=== PATIENT | male | born 1960 | race Caucasian/White ===

== ENCOUNTER 2023-03-27 17:50 | Emergency (ER) | payer OTHER ==
--- OUTSIDE RECORDS SUMMARY | 2023-03-27 17:53 | XMS REPORT | Continuity of Care Document ---
:1960 Author Organization [facility] t Address [address] [place] [address] [place] [id number] Care Team Providers Name Role Phone Wellness PT, Pt Primary Care Physician EMILY NIELSEN Attending Clinician Unavailable CINDY ARTHUR Attending Clinician Unavailable SARAH DELUNA Attending Clinician Unavailable Judith Dixon Attending Clinician Melissa Gregory MD Attending Clinician JUSTIN WEEMS Attending Clinician Unavailable Emily Nielsen MD Attending Clinician JUVENAL GOLDSTEIN Attending Clinician Unavailable Lab, Adc Fam Pob I Attending Clinician Unavailable Ze Rao Attending Clinician EZ NEWTON Attending Clinician Unavailable EMILY NIELSEN Admitting Clinician Unavailable Payers Payer Name Policy Type Policy Number Effective Date Expiration Date Jonathan mora CIGNA OPEN [id number] 2019 ACCESS/OPEN ACCESS 00:00:00 PLUS OPEN ACCESS PLUS - [id number] [employer] EVOLUTIONS [id number] HEALTHCARE -GENERIC Problems Condition Condition Condition Status Onset Resolution Last Treating Co mments Source Name Details Category Date Date Treatment Clinician Date History of History of Disease Active B aylor syncope syncope 07-14 [place] 00:00: of 00 Medicin e History of History of Disease Active [facility] bilateral bilateral 07-08 [facility] th knee knee 00:00: replacemen replacemen 00 t t Primary Primary Disease Active [facility] osteoarthr osteoarthr 07-08 He alth itis of itis of 00:00: right knee right knee 00 Chronic Chronic Disease Active [facility] pain of pain of 8-06 [facility] left knee left knee 00:00: 00 Chronic Chronic Disease Active [facility] pain of pain of 8-06 [facility] left knee left knee 00:00: 00 Arthritis Arthritis Disease Active [facility] of both of both 2-10 Health knees knees 00:00: 00 Trigger Trigger Problem Active 2016-10-04 Me moria finger finger 05:12:01 l (acquired) (acquired) He rmann Active Problem 10/04/2016 [facility] Trigger Trigger Diagnosis Active 2016-10-04 [facility] finger, finger, 05:12:01 l left ring left ring Herm hood finger finger Active Diagnosis 10/04/2016 [facility] Allergies, Adverse Reactions, Alerts Allergy Allergy Status Severity Reaction(s) Onset Inactive Treating Comm ents Source Name Type Date Date Clinician Oxycodon Allergy Active Other [facility] to 07-08 [facility] 00:[facility]: e 00 N.K.D.A. N.K.D.A. Active Info Not 2014-10 Ronak sj Available 1-16 l 00:00: Zoran 00 NO KNOWN Drug Active [facility] ALLERGIE Class ity of [facility] Social History Social Habit Start Date Stop Date Quantity Comments Source History SDOH Alcohol [facility] Frequency of Medicine History SDOH Alcohol [facility] [place] St[facility] Drinks of Medicine History SDOH Alcohol [facility] [place] Binge of Medicine Exposure to SARS-CoV-2 Not sure [facility] (event) Alcohol intake 2022-07-13 2022-07-13 Current drinker [facility] 00:00:00 00:00:00 of alcohol of Medicine (finding) Alcohol Comment 2022-07-13 2022-07-13 social [facility] 00:00:00 00:00:00 of Medicine Tobacco use and 2022-07-13 2022-07-13 Smokeless [facility] exposure 00:00:00 00:00:00 tobacco non-user of Medic ine History SDOH Physical 2022-07-07 2022-07-07 3 [facility] Activity DPW 00:00:00 00:00:00 of Medicine History SDOH Physical 2022-07-07 2022-07-07 3 [facility] Activity MPS 00:00:00 00:00:00 of Medicine illicitdruguse 2015-08-31 2015-08-31 [facility] 00:00:00 00:00:00 Zoran Sex [birth year] At [birth year] [facility] 00:00:00 00:00:00 Smoking Status Start Date Stop Date Source Tobacco smoking consumption unknown [facility] Never smoked tobacco [facility] [place] [facility] of Medicine Medications Ordered Filled Start Stop Current Ordering Indication Dosage Frequency Signature Comments Components Source Medication Medication Date Date Medication? Clinician (SIG) Name Name rosuvastati Yes 20mg Take 20 mg Zeb n (CRESTOR) 06-23 by mouth [place] [facility] 20 MG 00:00: daily. of tablet 00 Medicin e simvastatin 0 Yes [facility] (Zocor) 20 06-24 [facility] MG tablet 00:00: 00 simvastatin 2020-0 Yes [facility] (Zocor) 20 9- [facility] MG tablet 00:00: 00 simvastatin 2020-0 Yes [facility] (Zocor) 20 9- Health MG tablet 00:00: 00 simvastatin 2020-0 Yes [facility] (Zocor) 20 9- Health MG tablet 00:00: 00 simvastatin 2020-0 Yes [facility] (Zocor) 20 9 [facility] MG tablet 00:00: 00 simvastatin 2020-0 Yes [facility] (Zocor) 20 9- Health MG tablet 00:00: 00 simvastatin 2020-0 Yes [facility] (Zocor) 20 9- Health MG tablet 00:00: 00 simvastatin 2020-0 Yes [facility] (Zocor) 20 9- Health MG tablet 00:00: 00 simvastatin 2020-0 Yes Zeb (ZOCOR) 20 9- College MG tablet 00:00: of 00 Medicin e simvastatin 2020-0 Yes Zeb (ZOCOR) 20 9- College MG tablet 00:00: of 00 Medicin e simvastatin 2020-0 No [place] (ZOCOR) 20 06-24 College MG tablet 00:00: 00:00 of 00 :00 Medicin e Lipitor 2015-10 Yes Ivelisse 1 tablet [facility] 2-20 [place] 05:12: Lipitor 2015-10 Yes Ivelisse 1 tablet Mem oria 2-20 [place] 05:12: Immunizations Ordered Immunization Filled Immunization Date Status Commen ts Source Name Name Covid-19 Pfizer 2021-01-13 Completed [facility] SARS-CoV-2 Vaccination 00:00:00 Covid-19 Pfizer 2021-01-13 Completed [facility] SARS-CoV-2 Vaccination 00:00:00 Covid-19 Pfizer 2021-01-13 Completed [facility] SARS-CoV-2 Vaccination 00:00:00 Covid-19 Pfizer 2021-01-13 Completed [facility] SARS-CoV-2 Vaccination 00:00:00 Covid-19 Pfizer 2021-01-13 Completed [facility] SARS-CoV-2 Vaccination 00:00:00 Covid-19 Pfizer 2021-01-13 Completed [facility] SARS-CoV-2 Vaccination 00:00:00 Covid-19 Pfizer 2021-01-13 Completed [facility] SARS-CoV-2 Vaccination 00:00:00 Covid-19 Pfizer 2021-01-13 Completed [facility] SARS-CoV-2 Vaccination 00:00:00 Covid-19 Pfizer 2020-12-24 Completed [facility] SARS-CoV-2 Vaccination 00:00:00 Covid-19 Pfizer 2020-12-24 Completed [facility] SARS-CoV-2 Vaccination 00:00:00 Covid-19 Pfizer 2020-12-24 Completed [facility] SARS-CoV-2 Vaccination 00:00:00 Covid-19 Pfizer 2020-12-24 Completed [facility] SARS-CoV-2 Vaccination 00:00:00 Covid-19 Pfizer 2020-12-24 Completed [facility] SARS-CoV-2 Vaccination 00:00:00 Covid-19 Pfizer 2020-12-24 Completed [facility] SARS-CoV-2 Vaccination 00:00:00 Covid-19 Pfizer 2020-12-24 Completed [facility] SARS-CoV-2 Vaccination 00:00:00 Covid-19 Pfizer 2020-12-24 Completed [facility] SARS-CoV-2 Vaccination 00:00:00 Vital Signs Vital Name Observation Time Observation Value Comments Source Systolic blood 2022-07-13 14:03:00 132 mm[Hg] [facility] Medicine Diastolic blood 2022-07-13 14:03:00 86 mm[Hg] [facility] Medicine Heart rate 2022-07-13 14:00:00 56 /min [facility] Body height 2022-07-13 14:00:00 [facility]9 [facility] Body weight 2022-07-13 14:00:00 97.523 kg [facility] of Medicine BMI 2022-07-13 14:00:00 29.16 kg/m2 [facility] Systolic blood 2021-07-13 16:51:00 162 mm[Hg] [facility] Medicine Diastolic blood 2021-07-13 16:51:00 95 mm[Hg] [facility] Heart rate 2021-07-13 16:51:00 60 /min [facility] Body temperature 2021-07-13 16:51:00 36.5 [facility] Body height 2021-07-13 16:51:00 182.9 cm [facility] Body weight 2021-07-13 16:51:00 95.255 kg [facility] BMI 2021-07-13 16:51:00 28.48 kg/m2 [facility] Systolic (mm Hg) 2015-08-31 19:15:00 Ronakcheikh shaffer [facility] Height 2015-08-31 19:15:00 [facility] Weight 2015-08-31 19:15:00 [facility] Temperature Oral (F) 2015-08-31 19:15:00 97.5 F [facility] Heart Rate 2015-08-31 19:15:00 [facility] Diastolic (mm Hg) 2015-08-31 19:15:00 [facility] [place] Heart Rate 2015-07-27 16:00:00 [facility] Diastolic (mm Hg) 2015-07-27 16:00:00 Mem orial [facility] Systolic (mm Hg) 2015-07-27 16:00:00 Ronak deena [facility] Height 2015-07-27 16:00:00 [facility] Weight 2015-07-27 16:00:00 [facility] (F) 2015-07-27 16:00:00 97.6 F [facility] Procedures Procedure Date / Time Performing Clinician Source Performed (SCN) CT CHEST/CARDIAC 2022-07-13 09:51:59 [facility] ELECTROCARDIOGRAM COMPLETE 2022-07-13 09:04:00 B [facility] TREADMILL, NO IMAGING 2022-07-13 00:00:00 [facility] NM BONE SCAN 3 PHASE [id number] 2021-07-27 15:00:00 [facility] NM BONE SCAN 3 PHASE [id number] 2021-07-27 15:00:00 Dez [facility] [place] ARTHROCENTESIS ASPIR&/INJ 2021-07-08 20:15[facility]BURSA W/US [place] ARTHROCENTESIS ASPIR&/INJ 2021-07-08 20:15:24 Gia [facility] MAJOR JT/BURSA W/US XR KNEE 3 VIEWS BILATERAL 2021-07-08 17:19:48 Gia [facility] Plan of Care Planned Activity Planned Date Details Comments Source Future Scheduled 2022-07-14 TETANUS SHOT (ADULT) [facility] Test 17:01:34 [code = TETANUS SHOT Medicin e (ADULT)] Future Scheduled 2022-07-14 BMI FOLLOW UP PLAN [code [facility] Test 17:01:34 = BMI FOLLOW UP PLAN] Medici ne Future Scheduled 2022-07-14 Hepatitis C screening [facility] Test 17:01:34 (procedure) [code = Medicine 248612079] Future Scheduled 2022-07-14 Human immunodeficiency B [facility] 17:01:34 virus screening Medicine (procedure) [code = 690607406] Future Scheduled 2022-07-14 ZOSTER VACCINE (1 of 2) [facility] Test 17:01:34 [code = ZOSTER VACCINE (1 Me dicine of 2)] Future Scheduled 2022-07-14 COVID-19 Vaccine (4 - Ba [facility] Test 17:01:34 Booster) [code = COVID-19 Me dicine Vaccine (4 - Booster)] Future Scheduled 2022-07-14 FLU VACCINE > 6 MONTHS B [facility] of Test 17:01:34 [code = FLU VACCINE > 6 Medi cine MONTHS] Future Scheduled 2022-07-14 Screening for malignant [facility] of Test 17:01:34 neoplasm of colon Medicine (procedure) [code = 944990438] Future Scheduled 2022-07-13 ELECTROCARDIOGRAM [facility] of Test 09:02:55 COMPLETE [code = 48148] Medi cine Future Scheduled 2021-07-18 Screening for malignant [facility] of Test 00:20:56 neoplasm of colon Medicine (procedure) [code = 647703504] Future Scheduled 2021-07-18 TETANUS SHOT (ADULT) [facility] of Test 00:20:56 [code = TETANUS SHOT Medicin e (ADULT)] Future Scheduled 2021-07-18 BMI FOLLOW UP PLAN [code [facility] of Test 00:20:56 = BMI FOLLOW UP PLAN] Medici ne Future Scheduled 2021-07-18 Hepatitis C screening [facility] of Test 00:20:56 (procedure) [code = Medicine 340611948] Future Scheduled 2021-07-18 Human immunodeficiency B [facility] of Test 00:20:56 virus screening Medicine (procedure) [code = 868840075] Future Scheduled 2021-07-18 ZOSTER VACCINE (1 of 2) [facility] of Test 00:20:56 [code = ZOSTER VACCINE (1 Me dicine of 2)] Future Scheduled 2021-07-18 FLU VACCINE > 6 MONTHS B [facility] of Test 00:20:56 [code = FLU VACCINE > 6 Medi cine MONTHS] Future Scheduled 2021-07-18 Screening for malignant [facility] of Test 00:20:56 neoplasm of colon Medicine (procedure) [code = 526745510] Future Scheduled 2021-07-18 TETANUS SHOT (ADULT) [facility] of Test 00:20:56 [code = TETANUS SHOT Medicin e (ADULT)] Future Scheduled 2021-07-18 BMI FOLLOW UP PLAN [code [facility] of Test 00:20:56 = BMI FOLLOW UP PLAN] Medici ne Future Scheduled 2021-07-18 Hepatitis C screening [facility] of Test 00:20:56 (procedure) [code = Medicine 733672728] Future Scheduled 2021-07-18 Human immunodeficiency B [facility] of Test 00:20:56 virus screening Medicine (procedure) [code = 319353773] Future Scheduled 2021-07-18 ZOSTER VACCINE (1 of 2) [facility] 00:20:56 [code = ZOSTER VACCINE (1 Me dicine of 2)] Future Scheduled 2021-07-18 FLU VACCINE > 6 MONTHS B [facility] Test 00:20:56 [code = FLU VACCINE > 6 Medi cine MONTHS] Future Scheduled INFLUENZA VACCINE [code = [facility] Hospital Future Scheduled COVID-19 VACCINE (1) [facility] [code = COVID-19 VACCINE Hos pital (1)] Future Scheduled COLONOSCOPY SCREENING [facility] Test [code = COLONOSCOPY Hospital SCREENING] Future Scheduled SHINGLES VACCINES (#2) [facility]ist Test [code = SHINGLES VACCINES Ho spital (#2)] Encounters Start End Encounter Admission Attending Care Care Encounter Source Date/Time Date/Time Type Type Clinicians Facility Department ID 2021-09-22 Outpatient [facility] [id number] [facility] 10:31:43 Health 2021-07-08 Outpatient [facility] [id number] CT 11:57:34 Health 2021-07-08 Outpatient [facility] [id number] CT 11:51:44 [facility] 2020-03-30 Outpatient GIA, O[facility] [id number] 13:38:26 [facility] 2022-07-13 2022-07-13 Outpatient JOSIE ARTHUR [facility] [id number] [facility] 09:51:59 14:26:12 CINDY bryant of Medicin e 2022-07-13 2022-07-13 Office JOSIE ARTHUR [id number] [facility] 08:48:01 11:18:38 Visit CINDY AMBULATOR [id number] College Y [id number] [id number] Medi regi 300 e 2022-06-21 2022-06-21 Outpatient ROOPAPILO [facility] [id number] [place] 00:00:00 00:00:00 SARAH [address] 2022-06-21 2022-06-21 Outpatient [facility] [id number] [place] 00:00:00 00:00:00 SARAH [address] 2021-08-192021-08-19 Telephone ROSELINE Garces [facility] [id number] [place] 00:00:00 00:00:00 Judith ORTHO AND [id number] Health SPINE 9.2.7.2.686 MEDICAL [id number] PLA[address] 2 2021-07-27 2021-07-27 EXT MHH OP EXT MSRDP [id number] [place] 00:00:00 00:00:00 LOCATION [id number] H ealth 9.2.7.2.686 [id number] 2021-07-27 2021-07-27 EXT MHH OP EXT MSRDP [id number] [place] 00:00:00 00:00:00 LOCATION [id number] H ealth 9.2.7.2.686 [id number] 2021-07-21 2021-07-21 Orders Dez ROSELINE [facility] [id number] [place] 00:00:00 00:00:00 Only Judith ORTHO AND 350.1.13.58 Health SPINE 9.2.7.2.686 MEDICAL [id number] LEOLA 2 2021-07-13 2021-07-13 Office JOSIE Gregory [id number] [facility] 11:44:04 12:29:45 Visit Melissa AMBULATOR 350.1.13.21 [facility] Y 0.2.7.2.686 [id number] Medi regi 800 e 2021-07-13 2021-07-13 Outpatient JOSIE WEEMS [facility] [id number] [facility] 10:20:29 12:10:56 JUSTIN patterson of Medicin e 2021-07-08 2021-07-08 Office ROSELINE Nielsen 6400 [id number] [place] 11:38:00 13:09:[address] 350.1.13.58 Health 9.2.7.2.686 [id number] 2021-07-08 2021-07-08 EXT MHH OP Nielsen, EXT MSRDP [id number] [place] 00:00:00 00:00:00 Kelly [facility].13.58 [facility] 9.2.7.2.686 [id number] 2021-07-08 2021-07-08 EXT H OP Gia, EXT MSRDP [id number] [place] 00:00:00 00:00:00 Kelly LOCATION 350.1.13.58 H ealt 9.2.7.2.686 [id number] 2021-06-25 2021-06-25 Outpatient ANGELITA [facility] [id number] [facility] 09:49:50 09:49:50 JUVENAL bryant of Medicin e 2021-06-25 2021-06-25 Outpatient ANGELITA [facility] [id number] [facility] 09:42:48 09:42:48 JUVENAL bryant of Medicin e 2020-09-30 2020-09-30 Laboratory Lab, Adc Fam Pob I [facility] [id number]. [id number] [facility] 16:36:10 16:56:10 Only Ze Newton [facility] 350.1.13.10 Tara 4.2.7.2.686 Aj as Professio [id number] Mn dical [address] Office Building One 2020-09-30 2020-09-30 Outpatient R ZANDER [facility] [id number] [facility] 16:40:00 16:40:00 ZE albrecht [facility] 2019-12-09 2019-12-10 Inpatient NIELSEN, MHOSH MHOSH [id number] 12:10:00 12:34:00 EMILY [facility] 2015-08-31 2015-08-31 Unknown nullFlavo [facility] [id number] 24-2 [facility]oria 19:15:00 19:15:00 r and General [id number] l Surgery [id number] Najma nn [id number] 2015-08-31 2015-08-31 Unknown nullFlavo [facility] [id number] 24-2 [facility] 19:15:00 19:15:00 r and General [id number] l Surgery [id number] [facility] nn [id number] 2015-08-31 2015-08-31 Outpatient Davina Hand Davina Hand [id number] [facility]inic 13:15:00 13:15:00 and and General al Works General Surgery Surgery 2015-07-27 2015-07-27 Unknown nullFlavo [facility] Hand [id number] 52-c [facility] 17:00:00 17:00:00 r and General [id number] l Surgery [id number] [facility] [id number] 2015-07-27 2015-07-27 Unknown nullFlavo [facility] Hand [id number] 52-c [facility] 17:00:00 17:00:00 r and General [id number] l Surgery [id number] [facility] [id number] 2015-07-27 2015-07-27 Unknown nullFlavo [facility] [id number] ea-9 [facility] 16:00:00 16:00:00 r and General [id number] l Surgery [id number] [facility] [id number] 2015-07-27 2015-07-27 Unknown nullFlavo [facility] [id number] ea-9 [facility] 16:00:00 16:00:00 r and General [id number] l Surgery [id number] [facility] [id number] 2015-07-27 2015-07-27 Outpatient Davina Hand Davina Hand [id number] eClinic 11:00:00 11:00:00 and and General al Works General Surgery Surgery Results This patient has no known results.
[2023-03-27] MEDS ORDERED: NA CHLORIDE 0.9% 500 ML ONE (18:46)
[2023-03-27] MEDS ORDERED: MORPHINE 4 MG/ML SYR ONE (18:46)
[2023-03-27] MEDS ORDERED: ONDANSETRON 4 MG/2 ML VIAL ONE (18:46)
[2023-03-27 18:50] LABS: Absolute Lymphocytes (CBC) 1.9 K/uL (0.7-4.9); Hematocrit 40.8 % (39.6-49.0); Lymphocytes % 22.8 % (15.3-44.8); RBC Red Blood Cell Count 4.53 M/uL (4.33-5.43)
[2023-03-27 19:10] LABS: Potassium 3.9 mEq/L (3.5-5.1)
--- NOTE | 2023-03-27 19:43 | RAD REPORT ---
EXAM DESCRIPTION: CT - Stone Protocol - 03/27/2023 7:24 pm CLINICAL HISTORY: Abdominal pain. COMPARISON: None. TECHNIQUE: Computed axial tomography of the abdomen pelvis was obtained without oral or IV contrast. Lack of IV and oral contrast limits evaluation of solid organs, appendix, bowel, and vessels. Kilpatrick l reformatted images were obtained and reviewed. All CT scans are performed using dose optimization technique as appropriate and may include automated exposure control or mA/KV adjustment according to patient size. FINDINGS: Tiny left renal calculi. No hydronephrosis. Small left renal cyst Small right renal cyst Ureteral calculus is not seen. No bladder calculus. The liver, spleen, pancreas and adrenals appear grossly normal There is no evidence of diverticulitis. The appendix appears normal Spondylosis lumbar spine IMPRESSION: Tiny nonobstructing left renal calculi
--- NOTE | 2023-03-27 20:11 | ER ---
Nurse's Notes [facility] Name: David Melendrez Age: 63 yrs Sex: Male : 1960 Arrival Date: 03/27/2023 Time: 17:50 Bed 10 Private MD: Diagnosis: Small left renal calculi that is nonobstructing Presentation: 03/27 18:12 Chief complaint: Patient states: Left flank pain since 1400. Coronavirus screen: At [facility] this time, the client does not indicate any symptoms associated with coronavirus-19. Ebola Screen: No symptoms or risks identified at this time. Initial Sepsis Screen: Does the patient meet any 2 criteria? No. Patient's initial sepsis screen is negative. Does the patient have a suspected source of infection? No. Patient's initial sepsis screen is negative. Risk Assessment: Do you want to hurt yourself or someone else? Patient reports no desire to harm self or others. Onset of symptoms was March 27, 2023 at 14:00. 18:12 Method Of Arrival: Ambulatory [facility] 18:12 Acuity: JOEY 3 jl7 Triage Assessment: 18:14 General: Appears in no apparent distress. uncomfortable, Behavior is calm, cooperative, jl7 appropriate for age. Pain: Complains of pain in left flank Pain currently is 7 out of 10 on a pain scale. GI: Reports Pain is 7 out of 10 on a pain scale. Historical: - Allergies: 18:14 No Known Allergies; jl7 - Home Meds: 18:14 Simvastatin Oral [Active]; jl7 - PMHx: 18:14 Hypertensive disorder; Hypercholesterolemia; 7 - Immunization history:: Adult Immunizations unknown. - Social history:: Smoking status: Patient denies any tobacco usage or history of. Screenin:40 [facility] ED Fall Risk Assessment (Adult) Score/Fall Risk Level 0 - 2 = Low Risk. Abuse ss screen: Denies threats or abuse. Denies injuries from another. Nutritional screening: No deficits noted. Tuberculosis screening: No symptoms or risk factors identified. Assessment: 18:40 General: Appears in no apparent distress. uncomfortable, Behavior is calm, cooperative, ss appropriate for age. Pain: Complains of pain in left flank. Neuro: Level of Consciousness is awake, alert, obeys commands, Oriented to person, place, time, situation. Cardiovascular: Capillary refill < 3 seconds Patient's skin is warm and dry. Respiratory: Airway is patent Respiratory effort is even, unlabored, Respiratory pattern is regular, symmetrical. GI: Abdomen is round non-distended, Bowel sounds present X 4 quads. Abd is soft X 4 quads Abdomen is tender to palpation in left upper quadrant and left lower quadrant. : Urine is blood tinged. Derm: Skin is pink, warm \T\ dry. Musculoskeletal: No signs and/or symptoms reported regarding the musculoskeletal system. 19:30 Reassessment: Patient appears in no apparent distress at this time. Patient and/or eh3 family updated on plan of care and expected duration. Pain level reassessed. Patient is alert, oriented x 3, equal unlabored respirations, skin warm/dry/pink. Vital Signs: 18:12 BP 173 / 119; Pulse 60; Resp 17; Pulse Ox 97% ; Weight 95.25 kg; Height 6 ft. 0 in. ; jl7 Pain 7/10; 19:00 BP 171 / 98; Pulse 62; Resp 16; Pulse Ox 98% on R/A; eh3 20:00 BP 163 / 97; Pulse 61; Resp 16; Pulse Ox 97% on R/A; eh3 18:12 Body Mass Index 28.48 (95.25 kg, 182.88 cm) jl7 18:12 Pain Scale: Adult jl7 ED Course: 17:52 Patient arrived in ED. rg4 18:06 Scooter Mccarty MD is Attending Physician. kdr 18:14 Triage completed. jl7 18:14 Arm band placed on right wrist. jl7 18:35 Rosalie Russell, RN is Primary Nurse. ss 18:40 Patient has correct armband on for positive identification. Bed in low position. Call ss light in reach. Side rails up X2. Adult w/ patient. Pulse ox on. NIBP on. 18:52 Inserted saline lock: 20 gauge in right antecubital area, using aseptic technique. rs5 Blood collected. 19:26 CT Stone Protocol In Process Unspecified. EDMS 20:34 No provider procedures requiring assistance completed. IV discontinued, intact, eh3 bleeding controlled, No redness/swelling at site. Pressure dressing applied. Administered Medications: 18:40 Drug: Ondansetron IVP 4 mg Route: IVP; Site: right antecubital; ss 19:40 Follow up: Response: No adverse reaction eh3 18:40 Drug: NS 0.9% IV 500 ml Route: IV; Rate: bolus; Site: right antecubital; ss 19:30 Follow up: IV Status: Completed infusion; IV Intake: 500ml eh3 18:42 Drug: morphine IVP or IV 4 mg Route: IVP; Infused Over: 4 mins; Site: right antecubital;ss 19:40 Follow up: Response: No adverse reaction eh3 20:22 Drug: Hydrocodone-Acetaminophen PO (7.5 mg-325 mg) 1 tabs Route: PO; eh3 20:29 Follow up: Response: Medication administered at discharge. eh3 Medication: 20:34 VIS not applicable for this client. eh3 Intake: 19:30 IV: 500ml; Total: 500ml. eh3 Outcome: 20:10 Discharge ordered by . kdr 20:34 Discharged to home ambulatory. eh3 20:34 Condition: stable 20:34 Discharge instructions given to patient, Instructed on discharge instructions, follow up and referral plans. medication usage, Demonstrated understanding of instructions, follow-up care, medications, Prescriptions given X 4. 20:34 Patient left the ED. eh3 Signatures: Dispatcher [employer] EDMS Scooter Mccarty MD MD kdr Rosalie Russell RN RN Misty Perrin rg4 Aramis Eaton RN RN jl7 Pattie Beltre RN RN eh3 Fausto Beckman rs5
--- NOTE | 2023-03-27 20:11 | EDPHYS ---
Physician Documentation [facility] Name: David Melendrez Age: 63 yrs Sex: Male : 1960 Arrival Date: 03/27/2023 Time: 17:50 Bed 10 Private MD: ED Physician Scooter Mccarty HPI: 03/27 19:40 This 63 yrs old Male presents to ER via Ambulatory with complaints of Possible Kidney kdr Stone. 19:40 Patient complains of left flank pain, left CVA that began about 2:30 PM this afternoon. kdr Patient had kidney stones about 4 years ago. He states that to the best of his recollection the pain he now has is similar to that. Patient has had some nausea no vomiting has been more diaphoretic but otherwise has been stable. Patient is otherwise without associated signs and symptoms. He denies any pain with urination or diarrhea. Onset: The symptoms/episode began/occurred suddenly, at 14:30. Severity of symptoms: At their worst the symptoms were moderate severe just prior to arrival, in the emergency department the symptoms are unchanged. The patient has experienced a previous episode, approximately 40 years ago. The patient has not recently seen a physician. Historical: - Allergies: 18:14 No Known Allergies; jl7 - Home Meds: 18:14 Simvastatin Oral [Active]; jl7 - PMHx: 18:14 Hypertensive disorder; Hypercholesterolemia; jl7 - Immunization history:: Adult Immunizations unknown. - Social history:: Smoking status: Patient denies any tobacco usage or history of. ROS: 19:40 Constitutional: Negative for fever, chills, and weight loss, Eyes: Negative for injury, kdr pain, redness, and discharge, ENT: Negative for injury, pain, and discharge, Neck: Negative for injury, pain, and swelling, Cardiovascular: Negative for chest pain, palpitations, and edema, Respiratory: Negative for shortness of breath, cough, wheezing, and pleuritic chest pain, Abdomen/GI: Negative for abdominal pain, nausea, vomiting, diarrhea, and constipation, : Negative for injury, bleeding, discharge, and swelling, MS/Extremity: Negative for injury and deformity, Skin: Negative for injury, rash, and discoloration, Neuro: Negative for headache, weakness, numbness, tingling, and seizure activity. Psych: Negative for depression, anxiety, suicide ideation, homicidal ideation, and hallucinations, Allergy/Immunology: Negative for hives, rash, and allergies, Endocrine: Negative for neck swelling, polydipsia, polyuria, polyphagia, and marked weight changes, Hematologic/Lymphatic: Negative for swollen nodes, abnormal bleeding, and unusual bruising. 19:40 Back: Positive for pain at rest, of the left mid back. Exam: 19:40 Constitutional: This is a well developed, well nourished patient who is awake, alert, kdr and in no acute distress. Head/Face: Normocephalic, atraumatic. Eyes: Pupils equal round and reactive to light, extra-ocular motions intact. Lids and lashes normal. Conjunctiva and sclera are non-icteric and not injected. Cornea within normal limits. Periorbital areas with no swelling, redness, or edema. Neck: Trachea midline, no thyromegaly or masses palpated, and no cervical lymphadenopathy. Supple, full range of motion without nuchal rigidity, or vertebral point tenderness. No Meningismus. Chest/axilla: Normal chest wall appearance and motion. Nontender with no deformity. No lesions are appreciated. Cardiovascular: Regular rate and rhythm with a normal S1 and S2. No gallops, murmurs, or rubs. Normal PMI, no JVD. No pulse deficits. Respiratory: Lungs have equal breath sounds bilaterally, clear to auscultation and percussion. No rales, rhonchi or wheezes noted. No increased work of breathing, no retractions or nasal flaring. Abdomen/GI: Soft, non-tender, with normal bowel sounds. No distension or tympany. No guarding or rebound. No evidence of tenderness throughout. Back: No spinal tenderness. No costovertebral tenderness. Full range of motion. Skin: Warm, dry with normal turgor. Normal color with no rashes, no lesions, and no evidence of cellulitis. MS/ Extremity: Pulses equal, no cyanosis. Neurovascular intact. Full, normal range of motion. Neuro: Awake and alert, GCS 15, oriented to person, place, time, and situation. Cranial nerves II-XII grossly intact. Motor strength 5/5 in all extremities. Sensory grossly intact. Cerebellar exam normal. Normal gait. Psych: Awake, alert, with orientation to person, place and time. Behavior, mood, and affect are within normal limits. 19:40 Back: pain, that is mild, that is moderate, of the left mid back. Vital Signs: 18:12 BP 173 / 119; Pulse 60; Resp 17; Pulse Ox 97% ; Weight 95.25 kg; Height 6 ft. 0 in. ; jl7 Pain 04/24; 19:00 BP 171 / 98; Pulse 62; Resp 16; Pulse Ox 98% on R/A; eh3 20:00 BP 163 / 97; Pulse 61; Resp 16; Pulse Ox 97% on R/A; eh3 18:12 Body Mass Index 28.48 (95.25 kg, 182.88 cm) jl7 18:12 Pain Scale: Adult jl7 MDM: 19:40 Data reviewed: vital signs, nurses notes, lab test result(s), radiologic studies. kdr 20:10 Patient medically screened. kdr 03/27 18:24 Order name: CBC with Diff; Complete Time: 19:29 kdr 03/27 18:24 Order name: Chem 7; Complete Time: 19:29 kdr 03/27 18:24 Order name: CT Stone Protocol; Complete Time: 20:09 kdr Administered Medications: 18:40 Drug: Ondansetron IVP 4 mg Route: IVP; Site: right antecubital; ss 19:40 Follow up: Response: No adverse reaction 3 18:40 Drug: NS 0.9% IV 500 ml Route: IV; Rate: bolus; Site: right antecubital; ss 19:30 Follow up: IV Status: Completed infusion; IV Intake: 500ml 3 18:42 Drug: morphine IVP or IV 4 mg Route: IVP; Infused Over: 4 mins; Site: right antecubital;ss 19:40 Follow up: Response: No adverse reaction 3 20:22 Drug: Hydrocodone-Acetaminophen PO (7.5 mg-325 mg) 1 tabs Route: PO; 3 20:29 Follow up: Response: Medication administered at discharge. 3 Disposition Summary: 03/27/23 20:10 Discharge Ordered Location: Home kdr Problem: new kdr Symptoms: have improved kdr Condition: Stable kdr Diagnosis - Small left renal calculi that is nonobstructing kdr Followup: kdr - With: Private Physician - When: 2 - 3 days - Reason: If symptoms return, Further diagnostic work-up, Recheck today's complaints, Continuance of care, Re-evaluation by your physician Discharge Instructions: - Discharge Summary Sheet kdr - Kidney Stones, [id number] kdr Forms: - Medication Reconciliation Form kdr - Thank You Letter kdr - Antibiotic Education kdr - Prescription Opioid Use kdr Prescriptions: - Flomax 0.4 mg Oral capsule - take 1 capsule by ORAL route daily; 10 capsule; Refills: 0, Product Selection kdr Permitted - acetaminophen-codeine 300-15 mg Oral tablet - take 1 tablet by ORAL route every 4 to 6 hours as needed for pain; 12 tablet; kdr Refills: 0, Product Selection Permitted - Zofran 4 mg Oral Tablet - take 1 tablet by ORAL route every 4-6 hours As needed; 12 tablet; Refills: 0, kdr Product Selection Permitted - Bactrim DS 800-160 mg Oral Tablet - take 1 tablet by ORAL route every 12 hours for 3 days; 6 tablet; Refills: 0, kdr Product Selection Permitted Signatures: Dispatcher [employer] EDScooter Reardon MD MD kdr Rosalie Russell, RN RN ss Aramis Eaton RN RN jl7 Pattie Beltre RN RN eh3
[2023-03-27] MEDS ORDERED: HYDROCODONE/APAP 7.5/325 MG TAB ONE (20:28)
[2023-03-27 21:29] VITALS: BP 163/97; O2SAT 97
== END 2023-03-27 20:34 | disposition home or self-care (01) ==
LOC: ER 17:50
DX: N20.0 Calculus of kidney (principal); I10 Essential (primary) hypertension; E78.00 Pure hypercholesterolemia, unspecified; Z86.73 Personal history of transient ischemic attack (TIA), and cerebral infarction without residual deficits
CPT/HCPCS: 96361; 85025; 80048; 36415; 76377; 74176; 96375; 96374; 99284; J2405; J7040